=== PATIENT | female | born 1990 | race Two or more races ===

== ENCOUNTER 2022-02-19 18:14 | Emergency (ER) | payer BC ==
[2022-02-19 19:07] LABS: ANION GAP 9.5 meq/L (7-15); CHLORIDE,CL 106 mmol/L (98-107); SODIUM,NA 141 mmol/L (136-145)
== END 2022-02-19 19:50 | disposition home or self-care (01) ==
LOC: LL.ED 18:14
DX: R00.2 Palpitations (principal); Z72.0 Tobacco use
CPT/HCPCS: 36415; 71045; 80053; 84484; 85025; 93005; 99284; 99285-25

== ENCOUNTER 2022-03-07 06:08 | Emergency (ER) | payer BC ==
[2022-03-07] MEDS ORDERED: Aspirin 81 MG Tab.Chew PO ONE (06:27)
[2022-03-07] MEDS ORDERED: Sodium Chloride 0.9% 10 ML Syringe FLUSH PRN (06:27)
[2022-03-07] MEDS ORDERED: Lactated Ringers 1,000 ML IV SCH (06:30)
[2022-03-07 07:31] LABS: ANION GAP 10.3 meq/L (7-15); CHLORIDE,CL 106 mmol/L (98-107); SODIUM,NA 140 mmol/L (136-145)
== END 2022-03-07 10:29 | disposition home or self-care (01) ==
LOC: LL.ED 06:08
DX: R07.89 Other chest pain (principal); R00.2 Palpitations; Z91.048 Other nonmedicinal substance allergy status
CPT/HCPCS: 36415; 71046; 80053; 83605; 83690; 83735; 84443; 84484; 84703; 85025; 86140; 93005; 99285-25; A9270-GY; J7120

== ENCOUNTER 2024-01-18 00:32 | Emergency (ER) | payer BC ==
[2024-01-18 01:14] LABS: BASOPHILS ABSOLUTE AUTO 0.04 K/uL (0.00-0.20); BASOPHILS PERCENT AUTO 0.4 % (0.0-2.0); EOSINOPHILS ABSOLUTE AUTO 0.43 K/uL (0.00-0.50); EOSINOPHILS PERCENT AUTO 4.7 % (0.0-5.0); HEMATOCRIT 37.7 % (34.0-46.0); HEMOGLOBIN 12.2 g/dL (11.7-15.5); LYMPHOCYTES ABSOLUTE AUTO 2.58 K/uL (0.50-3.50); LYMPHOCYTES PERCENT AUTO 28.4 % (10.0-50.0); MEAN CORPUSCULAR HEMOGLOBIN 30.9 pg (28.2-33.3); MEAN CORPUSCULAR HGB CONC 32.4 g/dL (31.7-36.0); MEAN CORPUSCULAR VOLUME 95.4 fL (84.0-98.0); MONOCYTES ABSOLUTE AUTO 1.03 K/uL (0.00-1.00); MONOCYTES PERCENT AUTO 11.3 % (2.0-14.0); NEUTROPHILS ABSOLUTE AUTO 5.01 K/uL (1.40-7.00); NEUTROPHILS PERCENT AUTO 55.2 % (45.0-80.0); PLATELET COUNT,PLT 197 K/uL (150-350); RED BLOOD CELL COUNT 3.95 M/uL (3.77-5.09); RED CELL DISTRIBUTION WIDTH 13.2 % (11.2-14.1); WHITE BLOOD CELL COUNT,WBC 9.1 K/uL (4.0-10.2)
[2024-01-18 01:28] LABS: ALANINE AMINOTRANSFERASE,ALT 30 U/L (12-78); ALBUMIN 3.3 g/dL (3.4-5.0); ALKALINE PHOSPHATASE 59 IU/L (46-116); ANION GAP 10.4 meq/L (7-15); ASPARTATE AMNIOTRANSFERASE,AST 14 U/L (15-37); BILIRUBIN TOTAL 0.1 mg/dL (0.2-1.0); BLOOD UREA NITROGEN,BUN 16 mg/dL (7-18); CALCIUM 8.3 mg/dL (8.5-10.1); CARBON DIOXIDE,CO2 27.5 mmol/L (21.0-32.0); CHLORIDE,CL 110 mmol/L (98-107); CREATININE 0.84 mg/dL (0.51-1.17); ESTIMATED GFR 93 mL/min (>=60); GLUCOSE RANDOM 106 mg/dL (70-99); POTASSIUM,K 3.9 mmol/L (3.5-5.1); PROTEIN TOTAL,TP 6.1 g/dL (6.4-8.2); SODIUM,NA 144 mmol/L (136-145)
[2024-01-18 01:42] LABS: CORONAVIRUS COVID-19 NAA NEGATIVE (NEGATIVE); INFLUENZA A NAA NEGATIVE (NEGATIVE); INFLUENZA B NAA NEGATIVE (NEGATIVE); RESPIRATORY SYNCYTIAL VIR NAA NEGATIVE (NEGATIVE)
== END 2024-01-18 01:53 | disposition home or self-care (01) ==
LOC: MERGE 00:32 → LL.ED 00:32
DX: R00.2 Palpitations (principal); F17.210 Nicotine dependence, cigarettes, uncomplicated; Z86.19 Personal history of other infectious and parasitic diseases
CPT/HCPCS: 0241U; 36415; 80053; 85025; 93005; 93010; 99284; 99285